=== PATIENT | male | born 1980 | race Caucasian/White ===

== ENCOUNTER 2020-10-03 10:48 | Outpatient (REF) | payer OTHER, SELFPAY ==
--- NOTE | ~2020-10-03 | US_ITS ---
EXAMINATION: US VENOUS ULTRASOUND WITH DOPPLER LOWER EXTREMITY, RIGHT CLINICAL INFORMATION: Swelling COMPARISON: Previous exam June 2019 TECHNIQUE: Ultrasound of the deep veins is performed from the hip to the calf with compression sonography and color and pulse Doppler assessment. Spectral analysis with color-flow imaging is performed. FINDINGS: There is normal venous compression and respiratory variation and augmented flow. The visualized common femoral vein, superficial femoral vein, profunda femoral vein, popliteal vein, and the trifurcation region shows no evidence of deep venous thrombosis. There is no significant popliteal fossa cyst. US/US venous duplex LE RT IMPRESSION: No DVT demonstrated in the right lower extremity.
[2020-10-03 11:43] LABS: MANUAL DIFF FLAG NO
[2020-10-03 11:47] LABS: Basophils Percent Auto 0.5 % (0-2); Eosinophils Absolute Auto 0.1 X10*3/uL (0.0-0.4); Eosinophils Percent Auto 1.1 % (0-4); Hematocrit 45.6 % (42-52); Hemoglobin 14.7 g/dl (14.0-18.0); Imm Gran Abs Auto 0.02 X10*3/uL (0.00-0.03); Imm Gran Pct Auto 0.2 % (0.0-0.4); Lymphocytes Absolute Auto 3.5 X10*3/uL (1.2-4.9); Lymphocytes Percent Auto 41.2 % (20-40); Mean Corpuscular HGB Conc 32.2 g/dl (31.0-36.0); Mean Corpuscular Hemoglobin 27.3 pg (27.0-33.0); Mean Corpuscular Volume 84.6 fL (80-98); Mean Platelet Volume 10.9 fL (9.4-12.4); Monocytes Absolute Auto 0.8 X10*3/uL (0.1-1.2); Monocytes Percent Auto 9.8 % (2-11); Neutrophils Percent Auto 47.2 % (45-73); Platelet Count 195 X10*3/uL (160-400); Red Blood Count 5.39 X10*6/uL (4.60-5.80); Red Cell Distribution Width 13.3 % (11.0-16.0); White Blood Count 8.5 X10*3/uL (4.8-10.8)
[2020-10-03 12:12] LABS: Anion Gap 11 (12-20); Blood Urea Nitrogen 14 mg/dL (9-16); Calcium 9.7 mg/dL (8.4-10.2); Carbon Dioxide 28 mmol/L (22-29); Chloride 103 mmol/L (96-108); Estimated Glomerular Filt Rate > 60; Glucose Random 83 mg/dL (60-115); Potassium 4.6 mmol/L (3.3-5.1); Sodium 137 mmol/L (135-145)
== END 2020-10-03 10:49 | disposition home or self-care (01) ==
LOC: HO.US 10:48
PROVIDERS: PCP Internal Medicine; Visit Provider Internal Medicine
DX: Z00.00 Encounter for general adult medical examination without abnormal findings (principal); R60.0 Localized edema; R51.9 Headache, unspecified
CPT/HCPCS: 36415; 80048; 85025; 93971

== ENCOUNTER 2020-11-08 11:27 | Outpatient (REF) | payer OTHER, SELFPAY ==
--- NOTE | ~2020-11-08 | XR_ITS ---
EXAMINATION: XR CHEST CLINICAL INFORMATION: Dyspnea. COMPARISON: Chest radiograph dated 11/30/2018. TECHNIQUE: 2 views of the chest were obtained. FINDINGS: The lungs are clear. The cardiomediastinal silhouette is normal in size. There is no pleural effusion or pneumothorax. No acute osseous abnormality. XR/XR chest 2V IMPRESSION: No acute cardiopulmonary findings.
--- NOTE | 2020-11-08 11:56 | ECG_ITS ---
Test Reason : Z13.9 Blood Pressure : / mmHG Vent. Rate : 082 BPM Atrial Rate : 082 BPM P-R Int : 134 ms QRS Dur : 084 ms QT Int : 354 ms P-R-T Axes : 039 -09 019 degrees QTc Int : 413 ms Normal sinus rhythm Cannot rule out Inferior infarct , age undetermined Abnormal ECG When compared with ECG of 30-NOV-2018 12:43, No significant change was found Referred By: Giuliano Kelley Electronically Signed By:PATRICK CHEN MD
[2020-11-08 12:10] LABS: MANUAL DIFF FLAG NO
[2020-11-08 12:20] LABS: Basophils Percent Auto 0.3 % (0-2); Eosinophils Absolute Auto 0.1 X10*3/uL (0.0-0.4); Eosinophils Percent Auto 0.9 % (0-4); Hematocrit 47.5 % (42-52); Hemoglobin 15.4 g/dl (14.0-18.0); Imm Gran Abs Auto 0.02 X10*3/uL (0.00-0.03); Imm Gran Pct Auto 0.3 % (0.0-0.4); Lymphocytes Absolute Auto 3.7 X10*3/uL (1.2-4.9); Lymphocytes Percent Auto 47.8 % (20-40); Mean Corpuscular HGB Conc 32.4 g/dl (31.0-36.0); Mean Corpuscular Hemoglobin 27.4 pg (27.0-33.0); Mean Corpuscular Volume 84.5 fL (80-98); Mean Platelet Volume 11.3 fL (9.4-12.4); Monocytes Absolute Auto 0.7 X10*3/uL (0.1-1.2); Monocytes Percent Auto 9.2 % (2-11); Neutrophils Absolute Auto 3.2 X10*3/uL (2.0-8.3); Neutrophils Percent Auto 41.5 % (45-73); Platelet Count 213 X10*3/uL (160-400); Red Blood Count 5.62 X10*6/uL (4.60-5.80); Red Cell Distribution Width 13.2 % (11.0-16.0); White Blood Count 7.7 X10*3/uL (4.8-10.8)
[2020-11-08 12:44] LABS: Alanine Aminotransferase 35 U/L (0-40); Albumin Level 4.3 g/dL (3.5-5.0); Alkaline Phosphatase 88 U/L (39-117); Anion Gap 15 (12-20); Aspartate Amino Transferase 24 U/L (5-37); Bilirubin Total 0.6 mg/dL (0.0-1.0); Blood Urea Nitrogen 20 mg/dL (9-16); Calcium 9.8 mg/dL (8.4-10.2); Carbon Dioxide 28 mmol/L (22-29); Chloride 104 mmol/L (96-108); Cholesterol 233 mg/dL; Estimated Glomerular Filt Rate > 60; Glucose Fasting 103 mg/dL (60-99); HDL Cholesterol 39 mg/dL; LDL Cholesterol Calculated 151 mg/dl; Potassium 4.7 mmol/L (3.3-5.1); Sodium 142 mmol/L (135-145); Total Protein 7.2 g/dL (6.5-8.0); Triglycerides 216 mg/dL
[2020-11-08 13:05] LABS: Thyroid Stimulating Hormone 1.71 uIU/mL (0.32-4.0)
== END 2020-11-08 11:28 | disposition home or self-care (01) ==
LOC: HO.XRAY 11:27
PROVIDERS: PCP Internal Medicine; Visit Provider Internal Medicine
DX: Z01.818 Encounter for other preprocedural examination (principal); R06.00 Dyspnea, unspecified; E03.9 Hypothyroidism, unspecified; E11.9 Type 2 diabetes mellitus without complications
CPT/HCPCS: 36415; 71046; 80053; 80061; 84443; 85025; 93005

== ENCOUNTER 2023-06-15 16:53 | Emergency (ER) | payer OTHER, SELFPAY ==
--- NOTE | ~2023-06-15 | XR_ITS ---
EXAMINATION: XR CHEST CLINICAL INFORMATION: Shortness of breath. Cough. COMPARISON: 11/08/2020. TECHNIQUE: Frontal view of the chest was obtained. FINDINGS: No significant abnormality is noted involving the heart, lungs, mediastinum, bony thorax or soft tissues. XR/XR chest 1V IMPRESSION: Unremarkable examination.
[2023-06-15 16:57] VITALS: BP 147/91; PULSE 98; RESP 18; TEMP 36.7; O2SAT 98; BMI 36.0
--- NOTE | 2023-06-15 16:57 | ECG_ITS ---
Test Reason : CHEST PAIN Blood Pressure : / mmHG Vent. Rate : 104 BPM Atrial Rate : 104 BPM P-R Int : 142 ms QRS Dur : 080 ms QT Int : 350 ms P-R-T Axes : 021 -24 007 degrees QTc Int : 460 ms Sinus tachycardia Nonspecific T wave abnormality Abnormal ECG When compared with ECG of 08-NOV-2020 12:06, Minimal criteria for Inferior infarct are no longer Present Nonspecific ST and T wave abnormality more prominent Referred By: Meseret Sommers Electronically Signed By:KENIA PIZARRO
--- NOTE | 2023-06-15 16:58 | ED.GENADULT ---
HPI - General Adult General Chief complaint: General Medical Stated complaint: pain in the chest/back worse when breathing in Time Seen by Provider: 06/15/23 18:34 Source: patient, RN notes reviewed and old records reviewed Mode of arrival: ambulatory Limitations: no limitations History of Present Illness HPI narrative: 42-year-old male presents for evaluation of ?feeling sick. ? Patient states that he has had congestion, headache and body aches for the last 3 days This morning he woke up with left mid back pain His pain is worse with taking a deep breath He has minimal coughing Denies any sore throat He has no other complaints or concerns at this time He denies any sick contacts or recent travel Related Data Previous Rx's Medication Instructions Recorded naproxen 500 mg tablet (Naprosyn) 500 mg PO BID PRN pain #60 tabs 10/03/20 azithromycin 250 mg tablet See Rx Instructions PO .COMPLEX #6 07/11/22 tabs furosemide 20 mg tablet 20 mg PO DAILY #30 tabs 07/11/22 azithromycin 250 mg tablet 250 mg PO DAILY 4 days #4 tabs 06/15/23 prednisone 20 mg tablet 40 mg (2 x 20 mg) PO DAILY #8 tabs 06/15/23 Allergies Allergy/AdvReac Type Severity Reaction Status Date / Time No Known Allergies Allergy Verified 07/11/22 11:44 Review of Systems Constitutional: Constitutional: Reports body ache(s), Denies chills, Denies fever(s) and Reports headache(s) Eyes: Eyes: Denies blurry vision ENT: Reports headache(s) and Denies sore throat Cardiovascular: Cardiovascular: Denies chest pain Respiratory: Respiratory: Reports chest congestion, Reports cough and Reports pain on inspiration Gastrointestinal: Gastrointestinal: Denies abdominal pain, Denies nausea and Denies vomiting Musculoskeletal: Musculoskeletal: Reports back pain and Denies tingling Integumentary/Breasts: Skin/Breast: Denies rash Neurologic: Reports headache(s), Denies tingling and Denies paresthesias [facility] Family History Family History Mother High blood pressure Arthritis Father Asthma Lung cancer High blood pressure Social History Social History Housing: Apartment Alcohol intake: never Patient Tobacco Use Status: Current everyday Tobacco user Cigarettes Per Day: 10 e-Cigarette/Vaping Use: Never Used Second Hand Smoke Exposure: No Advance Directives: No Advance Directives Information Provided: No service: No Current occupational status: unemployed Cognitive needs: No Hearing needs: No Vision needs: No Physical Exam ED Vital Signs: Vital Signs - 24 hr 06/15/23 16:57 Temperature 98.0 F Pulse Rate 98 Respiratory Rate 18 Blood Pressure 147/91 H Pulse Oximetry 98 Oxygen Delivery Method Room Air BMI result Body Mass Index 36.0 Const General: healthy appearing, comfortable, no acute distress, alert and awake Nutritional Appearance: well nourished Orientation/consciousness: patient oriented x3 HENMT Head: Yes normocephalic and Yes atraumatic Ears: TM's normal bilaterally General nose exam: Normal nasal mucous membranes and turbinates present Face and sinus: Yes face symmetric and Yes sinus tenderness Throat: Yes posterior oropharynx normal Eyes Eyelids: Yes eyelids normal Conjunctivae: conjunctivae normal Sclerae: sclerae normal Corneas: corneas normal Pupils: Equal, round and reactive pupils present EOM: EOMs intact bilaterally Neck Neck: Yes full ROM Resp Effort & Inspection: normal respiratory effort, able to speak in complete sentences, no audible wheezes and not labored Auscultation: clear to auscultation bilaterally Cardio Rate: regular rate Rhythm: regular rhythm GI Inspection: No distended Palpation (GI): Soft to palpation, not firm, nontender, no guarding and not rigid Back/Spine/Pelvis Other: Patient is tender to palpation of the left mid back/thoracic paraspinous region. No palpable deformities, no vertebral tenderness. Skin General skin exam: elasticity normal Neuro General: patient oriented x3 Cranial nerves: Yes Equal, round and reactive pupils present and Yes Bilaterally intact EOM present Cognition (Neuro): normal cognition Extrem Other: Moving all extremities well without any obvious deformities Course Course Course Narrative: This is an RME: Additional HPI, ROS, PE not included below will be deferred to primary provider. 42 year old male presents w/ congestion, cp, sob X2 days. Reports chest pain is worse deep breathing and with exertion. No history of PE or DVT. Daily smoker. No sick contacts Perc negative. Likely viral. No need for D-dimer at this time low suspicion for PE DVT. No signs of acute respiratory distress. Plans viral test, labs, imaging Medical Decision Making Medical Decision Making MDM Narrative: 42-year-old male who is otherwise healthy presents for evaluation of upper respiratory infections and left back pain. His lungs are clear to auscultation, vital signs are stable. He has no risk factors for PE, EKG is nonischemic. His shortness of breath is likely related to nasal congestion upper respiratory/viral syndrome. His back pain appears musculoskeletal in origin as it is reproducible on exam, chest x-ray is clear. Plan for treatment of upper respiratory infection Differential Diagnosis Differential Diagnoses: The differential diagnosis associated with the presentation includes Upper respiratory infection Muscle strain Pneumonia Bronchitis Pneumothorax PE less likely Lab Data [facility] Lab Attestation statement: I reviewed the patient's lab results. No leukocytosis or anemia. No significant electrolyte abnormalities. Patient's BUN is just above normal at 19. Normal creatinine. Troponin undetectable. BNP also undetectable. ALT is slightly elevated to 72, unclear origin. No other LFT abnormalities 06/15/23 17:30 06/15/23 17:30 Labs: Lab Results 06/15/23 Range/Units 17:30 WBC 7.9 (4.8-10.8) X10*3/uL RBC 5.53 (4.60-5.80) X10*6/uL Hgb 14.9 (14.0-18.0) g/dl Hct 45.2 (42.0-52.0) % MCV 81.7 (80.0-98.0) fL MCH 26.9 L (27.0-33.0) pg MCHC 33.0 (31.0-36.0) g/dl RDW 13.1 (11.0-16.0) % Plt Count 190 (160-400) X10*3/uL MPV 10.4 (9.4-12.4) fL Immature Gran % (Auto) 0.3 (0.0-0.4) % Neut % (Auto) 38.0 L (45-73) % Lymph % (Auto) 54.0 H (20-40) % Cecil % (Auto) 7.6 (2-11) % Eos % (Auto) 0.0 (0-4) % Baso % (Auto) 0.1 (0-2) % Lymph # (Auto) 4.2 (1.2-4.9) X10*3/uL Cecil # (Auto) 0.6 (0.1-1.2) X10*3/uL Eos # (Auto) 0.0 (0.0-0.4) X10*3/uL Baso # (Auto) 0.0 (0.0-0.2) X10*3/uL Abs Immat Gran (auto) 0.02 (0.00-0.03) X10*3/uL Absolute Neuts (auto) 3.0 (2.0-8.3) x10*3/uL Absolute Nucleated RBC 0.000 (0.0-0.012) X10*3/uL Nucleated RBC % (auto) 0.0 (0.0-0.2) /100WBC PT 11.3 (11.1-13.3) SEC INR 0.9 (0.9-1.1) Sodium 139 (135-145) mmol/L Potassium 4.0 (3.3-5.1) mmol/L Chloride 107 (96-108) mmol/L Carbon Dioxide 21 L (22-29) mmol/L Anion Gap 15 (12-20) BUN 19 H (9-16) mg/dL Creatinine 0.80 (0.5-1.4) mg/dL Estim Creat Clear Calc 138.4 Estimated GFR > 60 Random Glucose 101 (60-115) mg/dL Calcium 9.5 (8.4-10.2) mg/dL Magnesium 2.3 (1.6-2.6) mg/dL Total Bilirubin 0.3 (0.0-1.0) mg/dL AST 36 (5-37) U/L ALT 72 H (0-40) U/L Alkaline Phosphatase 93 (39-117) U/L Troponin I High Sens < 2.7 (<3.5-35.0) ng/L B-Natriuretic Peptide < 10 (<100) pg/mL Total Protein 7.3 (6.5-8.0) g/dL Albumin 4.0 (3.5-5.0) g/dL Influenza Type A (PCR) NEGATIVE (Negative) Influenza Type B (PCR) NEGATIVE (Negative) RSV RNA Qual (PCR) NEGATIVE (Negative) SARS-CoV-2 RNA (RT-PCR) NEGATIVE (Negative) Independent Interpretation I performed an independent interpretation of an: EKG (Sinus tachycardia rate of 104 beats per minute. No ST segment elevations or depressions.) and Plain X-Ray (No infiltrate) Radiology Impression Discussion of test interpretation with radiology: I have reviewed the radiologist's reading. (Unremarkable examination) Discharge Plan Discharge Clinical Impression: Acute upper respiratory infection Patient Disposition: Home, Self-Care Instructions: Upper Respiratory Infection (ED) Additional Instructions: Take azithromycin daily starting tomorrow as your 1st dose was given in the emergency department Take prednisone 40 mg daily Use ibuprofen/Tylenol for body aches Follow-up with your primary doctor Return to the ER sooner if her symptoms do not improve treatment Prescriptions: New azithromycin 250 mg tablet 250 mg PO DAILY 4 Days Qty: 4 0RF Rx Instructions: start on day 2 of therapy prednisone 20 mg tablet 40 mg PO DAILY Qty: 8 0RF No Action naproxen [Naprosyn] 500 mg tablet 500 mg PO BID PRN (Reason: pain) Qty: 60 8RF azithromycin 250 mg tablet See Rx Instructions PO .COMPLEX Qty: 6 0RF Rx Instructions: take 500 mg today (day 1), then 250 mg for 4 days (days 2-5) PO furosemide 20 mg tablet 20 mg PO DAILY Qty: 30 6RF
[2023-06-15 17:35] LABS: MANUAL DIFF FLAG NO
[2023-06-15 17:38] LABS: Basophils Percent Auto 0.1 % (0-2); Hematocrit 45.2 % (42.0-52.0); Hemoglobin 14.9 g/dl (14.0-18.0); Imm Gran Abs Auto 0.02 X10*3/uL (0.00-0.03); Imm Gran Pct Auto 0.3 % (0.0-0.4); Lymphocytes Absolute Auto 4.2 X10*3/uL (1.2-4.9); Mean Corpuscular Hemoglobin 26.9 pg (27.0-33.0); Mean Corpuscular Volume 81.7 fL (80.0-98.0); Mean Platelet Volume 10.4 fL (9.4-12.4); Monocytes Absolute Auto 0.6 X10*3/uL (0.1-1.2); Monocytes Percent Auto 7.6 % (2-11); Platelet Count 190 X10*3/uL (160-400); Red Blood Count 5.53 X10*6/uL (4.60-5.80); Red Cell Distribution Width 13.1 % (11.0-16.0); White Blood Count 7.9 X10*3/uL (4.8-10.8)
[2023-06-15 17:45] LABS: INTERNATIONAL NORM RATIO 0.9 (0.9-1.1); Prothrombin Time 11.3 SEC (11.1-13.3)
[2023-06-15 17:53] LABS: Alanine Aminotransferase 72 U/L (0-40); Alkaline Phosphatase 93 U/L (39-117); Anion Gap 15 (12-20); Aspartate Amino Transferase 36 U/L (5-37); Bilirubin Total 0.3 mg/dL (0.0-1.0); Blood Urea Nitrogen 19 mg/dL (9-16); Calcium 9.5 mg/dL (8.4-10.2); Carbon Dioxide 21 mmol/L (22-29); Chloride 107 mmol/L (96-108); Creatinine Clr Calc Pharmacy 138.4; Estimated Glomerular Filt Rate > 60; Glucose Random 101 mg/dL (60-115); Magnesium 2.3 mg/dL (1.6-2.6); Sodium 139 mmol/L (135-145); Total Protein 7.3 g/dL (6.5-8.0)
[2023-06-15 18:01] LABS: Troponin-I High Sensitivity < 2.7 ng/L (<3.5-35.0)
[2023-06-15 18:03] LABS: B Type Natriuretic Peptide < 10 pg/mL (<100)
[2023-06-15 18:13] LABS: Influenza A PCR NEGATIVE (Negative); Influenza B PCR NEGATIVE (Negative); Resp Syncy Virus RNA Qual PCR NEGATIVE (Negative); SARS COV2 PCR INHOUSE NEGATIVE (Negative)
[2023-06-15] MEDS: predniSONE 20 MG TABLET 40 MG PO (18:57)
[2023-06-15] MEDS: Azithromycin 500 MG TABLET PO (18:57)
== END 2023-06-15 19:00 | disposition home or self-care (01) ==
PROVIDERS: Physician Assistant; Emergency Provider Emergency Medicine; PCP Internal Medicine
DX: J06.9 Acute upper respiratory infection, unspecified (principal); Z20.822 Contact with and (suspected) exposure to COVID-19; Z20.828 Contact with and (suspected) exposure to other viral communicable diseases
CPT/HCPCS: 0241U; 71045; 80053; 83735; 83880; 84484; 85025; 85610; 93005; 99283

== ENCOUNTER → 2023-06-15 16:57 | Outpatient (BNV) | payer OTHER, SELFPAY | PROVIDERS: Emergency Provider Emergency Medicine; PCP Internal Medicine; Visit Provider Internal Medicine | DX: R07.9 Chest pain, unspecified (principal) | CPT/HCPCS: 93010 ==

== ENCOUNTER 2023-09-28 20:14 | Emergency (ER) | payer OTHER, SELFPAY ==
--- NOTE | ~2023-09-28 | XR_ITS ---
EXAMINATION: XR HAND/WRIST, LEFT CLINICAL INFORMATION: Puncture wound to hand COMPARISON: None TECHNIQUE: PA, lateral, and oblique views of the left hand and wrist. FINDINGS: The bones and soft tissues are normal. No fracture. Alignment is anatomic. Joint spaces are maintained. No erosions or soft tissue calcifications. No radiopaque foreign body is seen. XR/XR hand wrist LT IMPRESSION: Normal radiographs of the hand and wrist.
[2023-09-28 20:37] VITALS: BP 131/72; PULSE 88; RESP 16; TEMP 37.3; O2SAT 96; BMI 34.7
--- NOTE | 2023-09-28 20:42 | ED.EXTPRO ---
HPI - Extremity Problem General Chief complaint: Extremity Injury, Upper Stated complaint: left hand ?piece of rust in the skin Time Seen by Provider: 09/28/23 23:59 Source: patient, RN notes reviewed and old records reviewed Mode of arrival: ambulatory Limitations: no limitations History of Present Illness HPI Narrative: 43-year-old presents for evaluation of left hand pain Patient reports that he was wearing cotton gloves. He was cleaning up a yard He reports that he picked up a piece of barbed wire He reports that a piece of the sharp wire punctured his left hand through the glove This happened yesterday afternoon, about 8 hours ago He reports 7/10 stabbing pain to the base of the left hand Denies any other injuries. The patient does not know when his last tetanus shot was Related Data Previous Rx's ?Medication ?Instructions ?Recorded naproxen 500 mg tablet (Naprosyn) 500 mg PO BID PRN pain #60 tabs 10/03/20 azithromycin 250 mg tablet See Rx Instructions PO .COMPLEX #6 07/11/22 tabs furosemide 20 mg tablet 20 mg PO DAILY #30 tabs 07/11/22 azithromycin 250 mg tablet 250 mg PO DAILY 4 days #4 tabs 06/15/23 prednisone 20 mg tablet 40 mg (2 x 20 mg) PO DAILY #8 tabs 06/15/23 cephalexin 500 mg capsule 500 mg PO QID #28 caps 09/29/23 oxycodone 5 mg tablet 5 mg PO Q6H PRN severe pain (scale 09/29/23 score 7-10) #12 tabs Allergies Allergy/AdvReac Type Severity Reaction Status Date / Time No Known Allergies Allergy Verified 09/28/23 20:40 Review of Systems Constitutional: Constitutional: Denies body ache(s), Denies chills and Denies fever(s) ENT: Denies sore throat Cardiovascular: Cardiovascular: Denies chest pain and Denies dyspnea Respiratory: Respiratory: Denies cough and Denies dyspnea Gastrointestinal: Gastrointestinal: Denies abdominal pain, Denies nausea and Denies vomiting Integumentary/Breasts: Skin/Breast: Reports erythema and Reports wounds PMFSH Family History Family History Mother High blood pressure Arthritis Father Asthma Lung cancer High blood pressure Social History Social History (Reviewed 10/09/21 @ 13:14 by JALYN Baron Housing: Apartment Alcohol intake: never Patient Tobacco Use Status: Current everyday Tobacco user Cigarettes Per Day: 10 e-Cigarette/Vaping Use: Never Used Second Hand Smoke Exposure: No Advance Directives: No Advance Directives Information Provided: No service: No Current occupational status: unemployed Cognitive needs: No Hearing needs: No Vision needs: No Physical Exam Vital Signs: Vital Signs: Last Vital Signs Temp 97.6 F 09/29/23 01:31 Pulse 79 09/29/23 01:31 Resp 14 09/29/23 01:31 BP 152/89 H 09/29/23 01:31 Pulse Ox 100 09/29/23 01:31 O2 Del Method Room Air 09/29/23 01:31 BMI result Body Mass Index 34.7 Const: General: healthy appearing, comfortable, no acute distress, alert and awake Nutritional Appearance: well nourished Orientation/consciousness: patient oriented x3 HEENT: Head: Yes normocephalic and Yes atraumatic Eyes: Eyelids: Yes eyelids normal Conjunctivae: conjunctivae normal Sclerae: sclerae normal Corneas: corneas normal Pupils: Equal, round and reactive pupils present EOM: EOMs intact bilaterally Neck: Neck: Yes full ROM Resp: Effort & Inspection: normal respiratory effort, able to speak in complete sentences and not labored GI: Inspection: No distended Palpation (GI): Soft to palpation, not firm, nontender, no guarding and not rigid Skin: Other: Patient has a pinpoint puncture wound on the palmar surface of the hand just to the ulnar side of the thenar eminence. There is minimal edema, no significant erythema or purulence. This area is tender to palpation. There is no bleeding. I can not palpate any obvious foreign body General skin exam: elasticity normal Neuro: General: patient oriented x3 Cranial nerves: Yes Equal, round and reactive pupils present and Yes Bilaterally intact EOM present Cognition (Neuro): normal cognition Course Course Course Narrative: RME: 40-year-old male presents to the ED for meghann piece of barbed wire pacing left hand. Patient has complete range of motion of left hand. No active bleeding. Patient concern for tetanus. Patient will be sent for x-ray and Tdap ordered. Medications Administered Discontinued Medications Generic Name Dose Route Start Last Admin Trade Name Freq PRN Reason Stop Dose Admin Cephalexin HCl 500 mg 04/09/24 01:09 09/29/23 01:21 Cephalexin 500 Mg Capsule PO 09/29/23 01:10 500 mg ONCE ONE Administration Diphtheria/Tetanus/Acell Pertussis 0.5 ml 09/28/23 20:41 09/29/23 01:17 Diphth,Pertus(Acell),Tet Adult 0.5 Ml Syringe IM 09/28/23 20:42 Not Given .ONCE ONE Diphtheria/Tetanus/Acell Pertussis 0.5 ml 09/29/23 01:09 09/29/23 01:22 Diphth,Pertus(Acell),Tet Adult 0.5 Ml Syringe IM 09/29/23 01:10 0.5 ml .ONCE ONE Administration Oxycodone HCl 5 mg 09/29/23 01:09 09/29/23 01:21 Oxycodone Hcl Immed Release 5 Mg Tablet PO 09/29/23 01:10 5 mg ONCE ONE Administration Medical Decision Making Medical Decision Making MDM Narrative: 43-year-old male presents for evaluation of puncture wound to the left hand. He has full range of motion flexion-extension of all fingers of the left hand, including opposition of the thumb. He has full range of motion of the left wrist. There is no obvious foreign body on exam or through x-ray. No evident fracture. Plan to treat with analgesia, antibiotics and tetanus booster. Differential Diagnosis Differential Diagnoses: The differential diagnosis associated with the presentation includes Puncture wound Cellulitis Foreign body Tenosynovitis Independent Interpretation I performed an independent interpretation of an: Plain X-Ray (No obvious foreign body) Radiology Impression Discussion of test interpretation with radiology: I have reviewed the radiologist's reading. Radiologist Impression: Normal radiographs of the left hand Discharge Plan Discharge Clinical Impression: Puncture wound of left hand Patient Disposition: Home, Self-Care Instructions: Puncture Wound (ED) Additional Instructions: Use ibuprofen/Tylenol as needed for pain. Your x-ray did not show any retained foreign body Your tetanus was updated today Use oxycodone for more severe, breakthrough pain This may make you sleepy, did not drink alcohol or drive after taking it Use cephalexin 4 times daily for the next 7 days Return to the ER for any new or worsening symptoms, especially redness, increased swelling, decreased motion of the hand or fevers Prescriptions: New cephalexin 500 mg capsule 500 mg PO QID Qty: 28 0RF oxycodone 5 mg tablet 5 mg PO Q6H PRN (Reason: severe pain (scale score 7-10)) Qty: 12 0RF Rx Instructions: Partial Fill upon patient request. No Action azithromycin 250 mg tablet 250 mg PO DAILY 4 Days Qty: 4 0RF Rx Instructions: start on day 2 of therapy prednisone 20 mg tablet 40 mg PO DAILY Qty: 8 0RF naproxen [Naprosyn] 500 mg tablet 500 mg PO BID PRN (Reason: pain) Qty: 60 8RF azithromycin 250 mg tablet See Rx Instructions PO .COMPLEX Qty: 6 0RF Rx Instructions: take 500 mg today (day 1), then 250 mg for 4 days (days 2-5) PO furosemide 20 mg tablet 20 mg PO DAILY Qty: 30 6RF Interventions: ED Discharge Assessment Last Done: 09/29/23 01:31 Discharge Date/Time: 09/29/23 01:33 Print Language: Telugu
[2023-09-29] MEDS: oxyCODONE HCl Immed Release 5 MG TABLET PO (01:21)
[2023-09-29] MEDS: cephALEXin 500 MG CAPSULE PO (01:21)
[2023-09-29] MEDS: Diphth,Pertus(ACell),Tet Adult 0.5 ML SYRINGE IM (01:22)
[2023-09-29 01:31] VITALS: BP 152/89; PULSE 79; RESP 14; TEMP 36.4; O2SAT 100
== END 2023-09-29 01:33 | disposition home or self-care (01) ==
PROVIDERS: Emergency Provider Emergency Medicine
DX: S61.432A Puncture wound without foreign body of left hand, initial encounter (principal); W26.8XXA Contact with other sharp object(s), not elsewhere classified, initial encounter; Y93.H9 Activity, other involving exterior property and land maintenance, building and construction; Y92.9 Unspecified place or not applicable; Y99.9 Unspecified external cause status
CPT/HCPCS: 73110; 73130; 90471; 90715; 99283; 99284

== ENCOUNTER 2023-11-25 22:04 | Emergency (ER) | payer OTHER, SELFPAY ==
--- NOTE | ~2023-11-25 | XR_ITS ---
EXAMINATION: XR HAND/WRIST, RIGHT CLINICAL INFORMATION: Pain, possible work injury COMPARISON: None TECHNIQUE: PA, lateral, and oblique views of the right hand and wrist. FINDINGS: Osseous alignment is anatomic. No acute fracture is seen. Mild degenerative change at the basal joint of the thumb. No significant focal soft tissue abnormality identified. XR/XR hand wrist RT IMPRESSION: No acute findings identified.
[2023-11-25 22:14] VITALS: BP 118/73; PULSE 72; RESP 20; TEMP 36.2; O2SAT 98; BMI 33.0
[2023-11-26 03:47] VITALS: BP 120/66; PULSE 68; RESP 16; TEMP 36.6; O2SAT 98
[2023-11-26] MEDS: Acetaminophen 325 MG TABLET 975 MG PO (04:04)
--- NOTE | 2023-11-26 06:02 | PC.NURSE ---
After screaming at staff and t/w over the lengthy wait to see a provider, this patient requested to leave, banging on the doors by [facility], screaming to be let out. MD aware but remained unable to see pt.
--- NOTE | 2023-11-26 06:14 | PC.NURSE ---
Pt extremely upset at the lengthy wait to see provider. T/w and multiple other staff members explaining that the one provider on at night is extremely behind. notified that pt and visitor upset, yelling at staff. remained unable to see pt.
== END 2023-11-26 06:45 | disposition left against medical advice (07) ==
PROVIDERS: Emergency Provider Emergency Medicine
DX: M79.641 Pain in right hand (principal); M79.601 Pain in right arm; M25.531 Pain in right wrist
CPT/HCPCS: 73110; 73130; 99283

== ENCOUNTER 2023-11-27 13:42 | Outpatient (AMB) | payer OTHER, SELFPAY ==
[2023-11-27 13:50] VITALS: BP 130/70; PULSE 73; TEMP 36.7; O2SAT 98; BMI 32.4
--- NOTE | 2023-11-27 13:50 | MHC.OFFWIV ---
Intake Vital Signs 11/27/23 13:50 Height 5 ft 7 in Intake Visit Reasons: EP RT Forearm/hand concerns Intake Note: pt is here today for rt forearm and hand concerns started Patient Tobacco Use Status: Current everyday Tobacco user Allergies No Known Allergies Allergy (Verified 11/25/23 22:14) PFSH Family History Mother High blood pressure Arthritis Father Asthma Lung cancer High blood pressure Social History (Reviewed 10/09/21 @ 13:14 by Chris Mercado [facility]) Housing: Apartment Alcohol intake: never Patient Tobacco Use Status: Current everyday Tobacco user Cigarettes Per Day: 10 e-Cigarette/Vaping Use: Never Used Second Hand Smoke Exposure: No service: No Current occupational status: unemployed Cognitive needs: No Hearing needs: No Vision needs: No Coding
--- NOTE | 2023-11-27 13:59 | AM.OFFWIN_ITS ---
Intake Vital Signs 11/27/23 13:50 Height 5 ft 7 in Weight 207 lb BMI 32.4 BP 130/70 Blood Pressure Location Lt brachial Position Sitting Pulse 73 Pulse Source Pulse Oximeter Temp 98.0 F Temp Source Temporal Artery Scan Pulse Oximetry (%) 98 Oxygen Delivery Method Room Air Intake Visit Reasons: EP RT Forearm/hand concerns Intake Note: pt is here today for rt forearm and hand concerns started wed Patient Tobacco Use Status: Current everyday Tobacco user Allergies No Known Allergies Allergy (Verified 11/27/23 14:01) Do you need a note to return to daycare/school/sports/work: No HPI HPI Comments History of Present Illness Details Patient is a 43-year-old male complaining of right forearm and hand pain x2 days. He states he was using a sledgehammer at work then came home and fell asleep on his hand when when he woke up, his hand and wrist were swollen, every time he tried to open his fist, it would curl forward as well as generalized weakness in his hand, he also noted that he had some numbness in his thumb area. [facility] Family History Mother High blood pressure Arthritis Father Asthma Lung cancer High blood pressure Social History Housing: Apartment Alcohol intake: never Patient Tobacco Use Status: Current everyday Tobacco user Cigarettes Per Day: 10 e-Cigarette/Vaping Use: Never Used Second Hand Smoke Exposure: No service: No Current occupational status: unemployed Cognitive needs: No Hearing needs: No Vision needs: No Review of Systems Const All systems reviewed & are unremarkable except as noted in HPI and below Physical Exam Vital Signs: Last Vital Signs Temp 98.0 F 11/27/23 13:50 Pulse 73 11/27/23 13:50 BP 130/70 11/27/23 13:50 Pulse Ox 98 11/27/23 13:50 Oxygen Delivery Method Room Air 11/27/23 13:50 BMI result Body Mass Index 32.4 Const General: cooperative, healthy appearing, comfortable, no acute distress and well developed Orientation/consciousness: patient oriented x3 Limitations: no limitations HEENT Head: Yes normal to inspection Eyes General: appearance normal, both eyes and all related structures Neck Neck: Yes normal visual inspection and Yes full ROM GI Inspection: Yes normal to inspection Palpation (GI): Soft to palpation and nontender Skin General skin exam: no rashes or lesions noted Neuro General: patient oriented x3 Extrem Right upper extremity: wrist Details: abnormal to inspection Details: joint swelling; no erythema, tenderness Location: of the dorsal wrist and of the volar wrist; not of the anatomic snuffbox, swelling Location: of the dorsal wrist and of the volar wrist and normal vascular exam; no unusual warmth, no abrasions, no lacerations and no foreign body and Extremity exam: right hand Details: abnormal to inspection (generalized slight edema), tendon exam normal and abnormal ROM of finger (unable to extend all 5 digits completely R side, 5/5 distribution a class lineman strength b/l); no tenderness, no unusual warmth, no abrasions, no lacerations, no ecchymosis, no crepitus, no foreign bodies and no puncture wound Assessment & Plan Assessment & Plan (1) Wrist pain, right: Code(s): M25.531 - Pain in right wrist Plan: Applied Terrance bandage, advised her I CE. Will get x-ray to ensure no trauma from using the sledgehammer. Advised if no improvement, follow-up with primary care doctor or orthopedics. Orders: Orders XR hand wrist RT Today M25.531 - Pain in right wrist Coding Level of Care Code Est Pt Level 3 (08964) Diagnoses Wrist pain, right M25.531
== END 2023-11-27 14:52 | disposition home or self-care (01) ==
PROVIDERS: Visit Provider Physician Assistant
DX: M25.531 Pain in right wrist (principal); Z04.2 Encounter for examination and observation following work accident
CPT/HCPCS: 99213

== ENCOUNTER 2023-11-27 14:27 | Outpatient (REF) | payer OTHER, SELFPAY ==
--- NOTE | ~2023-11-27 | XR_ITS ---
EXAMINATION: XR HAND/WRIST, RIGHT CLINICAL INFORMATION: Pain COMPARISON: Previous x-ray most recent from yesterday TECHNIQUE: PA, lateral, and oblique views of the right hand and wrist. FINDINGS: No acute fracture or dislocation. There may be an old healed fracture of the fifth metacarpal bone. Mild degenerative changes at the first CORRECTION joint with joint space narrowing and osteophyte formation. Soft tissues are normal. XR/XR hand wrist RT IMPRESSION: No acute findings. Question old healed fifth metacarpal fracture. 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
== END 2023-11-27 14:28 | disposition home or self-care (01) ==
LOC: HO.HMGCX 14:27
PROVIDERS: Visit Provider Physician Assistant
DX: M25.531 Pain in right wrist (principal)
CPT/HCPCS: 73110; 73130

== ENCOUNTER 2024-05-06 14:15 | Outpatient (REF) | payer OTHER, SELFPAY | END 2024-05-06 14:16 | disposition home or self-care (01) | LOC: HO.LAB 14:15 | PROVIDERS: Visit Provider Physician Assistant | DX: J06.9 Acute upper respiratory infection, unspecified (principal) | CPT/HCPCS: 99202 ==

== ENCOUNTER 2024-05-06 14:15 | Outpatient (AMB) | payer OTHER, SELFPAY ==
[2024-05-06 14:19] VITALS: BP 122/76; PULSE 73; TEMP 36.8; O2SAT 96; BMI 32.2
--- NOTE | 2024-05-06 14:19 | MHC.OFFWIV ---
Intake Vital Signs 05/06/24 14:19 Height 5 ft 7 in Weight 205 lb 6 oz BMI 32.2 BP 122/76 Blood Pressure Location Rt brachial Position Sitting Pulse 73 Pulse Source Pulse Oximeter Temp 98.2 F Temp Source Oral Pulse Oximetry (%) 96 Oxygen Delivery Method Room Air Intake Visit Reasons: EP cold, RT rib in pain Intake Note: pt is here for cold, right rib pain Patient Tobacco Use Status: Current everyday Tobacco user Allergies No Known Allergies Allergy (Verified 05/06/24 14:19) Do you need a note to return to daycare/school/sports/work: No HPI HPI Comments History of Present Illness Details Patient is a 43-year-old male here with 2 complaints. First he says 10 days ago, he was jumping over a fence and he got caught on it and landed on his right rib. He states it was immediately painful. It is worse when he coughs. He tells me he has been coughing for the last 2 weeks. He also has nasal congestion, head congestion and sinus pain and feels short of breath because of it. He denies any ear pain, fevers, chest pain or wheezing. He has tried taking NyQuil and DayQuil without much relief. He has not tested for COVID. He denies a history of asthma or COPD. He tells me his girlfriend is also sick at home with similar symptoms. COUNTS INCLUDE 234 BEDS AT THE [facility] Family History Mother High blood pressure Arthritis Father Asthma Lung cancer High blood pressure Social History Housing: Apartment Alcohol intake: never Patient Tobacco Use Status: Current everyday Tobacco user Cigarettes Per Day: 10 e-Cigarette/Vaping Use: Never Used Second Hand Smoke Exposure: No service: No Current occupational status: unemployed Cognitive needs: No Hearing needs: No Vision needs: No Review of Systems Const All systems reviewed & are unremarkable except as noted in HPI and below Physical Exam Const General: cooperative, healthy appearing, comfortable and no acute distress Orientation/consciousness: patient oriented x3 Limitations: no limitations HEENT Head: Yes normal to inspection Ears: hearing grossly normal bilaterally, external ears normal and TM's normal bilaterally General nose exam: Normal external nose present, Normal nares present and No nasal discharge present Face and sinus: Yes normal facial exam and Yes sinuses nontender Mouth: Normal oral and palatal mucosa present and moist mucous membranes Throat: Yes tonsils normal, Yes uvula midline and Yes posterior oropharynx abnormal (Erythema) Eyes General: appearance normal, both eyes and all related structures Neck Neck: Yes normal visual inspection Resp Effort & Inspection: normal respiratory effort, able to speak in complete sentences, Actively coughing, no respiratory distress, not tachypneic, no tripod positioning and no use of accessory muscles Auscultation: clear to auscultation bilaterally Cardio Rate: regular rate Rhythm: regular rhythm Heart sounds: normal S1 and S2 Skin General skin exam: no rashes or lesions noted Neuro General: patient oriented x3 Extrem General: Yes normal to inspection and Yes no clubbing, cyanosis or edema Assessment & Plan Assessment & Plan (1) URI (upper respiratory infection): Code(s): J06.9 - Acute upper respiratory infection, unspecified Qualifiers: URI type: unspecified URI Qualified Code(s): J06.9 - Acute upper respiratory infection, unspecified Plan: Vital signs are stable and patient is well-appearing, I will get a chest x-ray because he is coughing he also could have fractured a rib with his fence incident. I have sent prednisone and codeine cough syrup to help him with his symptoms and as it has been over 2 weeks of a cough, likely could be an atypical pneumonias so I sent a Z-Quique to his pharmacy. We also tested for flu COVID and RSV. Plan See above Orders: Orders XR chest 2V Today R05.9 - Cough, unspecified SARS-CoV2/FLU/RSV Today J06.9 - Acute upper respiratory infection, unspecified Medications: New prednisone 20 mg PO QAM 5 tabs 0RF azithromycin For 250 mg dose pack: take 500 mg today (day 1), then 250 mg for 4 days (days 2-5) PO 6 tabs 0RF codeine-guaifenesin 10-100 mg/5 mL 10 mL PO Q4-6H PRN 120 mL 0RF cold symptoms Coding Level of Care Code New Pt Level 4 (83720) Diagnoses Upper respiratory tract infection, unspecified type J06.9 URI type: unspecified URI
== END 2024-05-06 14:43 | disposition home or self-care (01) ==
PROVIDERS: Visit Provider Physician Assistant
DX: J06.9 Acute upper respiratory infection, unspecified (principal)

== ENCOUNTER 2024-05-06 14:35 | Outpatient (REF) | payer OTHER, SELFPAY ==
--- NOTE | ~2024-05-06 | XR_ITS ---
EXAMINATION: XR CHEST CLINICAL INFORMATION: Cough. COMPARISON: Most recent chest radiograph dated 06/15/2023. TECHNIQUE: 2 views of the chest were obtained. FINDINGS: The lungs are clear. The cardiomediastinal silhouette is normal in size. There is no pleural effusion or pneumothorax. No acute osseous abnormality. XR/XR chest 2V IMPRESSION: No acute cardiopulmonary findings. Electronically signed by: Job Regan MD 05/06/2024 03:49 PM [facility]
[2024-05-06 16:51] LABS: Influenza A PCR NEGATIVE (Negative); Influenza B PCR NEGATIVE (Negative); Resp Syncy Virus RNA Qual PCR NEGATIVE (Negative); SARS COV2 PCR INHOUSE NEGATIVE (Negative)
== END 2024-05-06 14:36 | disposition home or self-care (01) ==
LOC: HO.HMGCX 14:35
PROVIDERS: Visit Provider Physician Assistant
DX: J06.9 Acute upper respiratory infection, unspecified (principal); R05.9 Cough, unspecified
CPT/HCPCS: 0241U; 71046

== ENCOUNTER 2025-03-31 18:54 | Emergency (ER) | payer OTHER, SELFPAY ==
--- NOTE | ~2025-03-31 | US_ITS ---
CLINICAL HISTORY: right sided flank pain US Renal limited right Comparison: None provided Findings: Right kidney normal size and echotexture, 11.1 cm length. Left kidney Was not imaged present examination. No hydronephrosis of right kidney. Normal color Doppler IMPRESSION: 1. Negative right kidney. This document has been electronically signed by: Ricky Avila MD on 03/31/2025 20:33:40
[2025-03-31 19:26] VITALS: BP 180/100; PULSE 76; RESP 20; TEMP 36.6; O2SAT 98; BMI 32.9
--- NOTE | 2025-03-31 19:27 | ED_ITS ---
HPI - General Adult General Chief complaint: Urogenital-Male Stated complaint: Flank pain Time Seen by Provider: 03/31/25 20:16 Source: patient Limitations: no limitations History of Present Illness ED Provider: Sujatha Romano PA-C HPI narrative: 44-year-old male presents with right flank pain x3 days. Pain over mid flank with radiation to right lower quadrant. Pain fluctuates in intensity, becoming severe at times, described as a stabbing sensation. Associated difficulty voiding. Denies dysuria, obvious hematuria, history of kidney stones or fever. Related Data Home Medications ?Medication ?Instructions ?Recorded ?Confirmed loratadine 10 mg tablet 10 mg PO DAILY 05/06/24 Previous Rx's ?Medication ?Instructions ?Recorded azithromycin 250 mg tablet See Rx Instructions PO .COM PLEX #6 05/06/24 tabs codeine 10 mg-guaifenesin 100 mg/5 10 ml PO Q4-6H PRN cold symptoms 05/06/24 mL oral liquid #120 mL prednisone 20 mg tablet 20 mg PO QAM #5 tabs 4 ketorolac 10 mg tablet 10 mg PO Q6H PRN pain #20 ta bs 03/31/25 ondansetron 4 mg disintegrating 4 mg PO Q8H PRN nausea and 03/31/25 tablet vomiting #10 tabs tamsulosin 0.4 mg capsule (Flomax) 0.4 mg PO DAILY #6 caps 03/31/25 Allergies Allergy/AdvReac Type Severity Reaction Status Date / Time No Known Allergies Allergy Verified 03/31/25 19:31 [facility] Past Medical History Attestation statement: The following information was validated with the patient. 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 RME assessment and note performed by: Saloni Coleman PA-C This is a 55-eryp-ghs-male, with no known medical problems, who presents to the ER with concerns of right-sided flank pain radiating to his right lower abdomen for the last few days, worsening today. Patient does have tenderness palpation along the right CVA region. Also reporting difficulty with voiding. Of note, he does have very faint vesicular rash on his right flank, however nontender to light touch. Plan: Labs, UA, further ER evaluation needed. Medications Administered Discontinued Medications Generic Name Dose Route Start Last Admin Trade Name Freq PRN Reason Stop Dose Admin Sodium Chloride 500 mls @ 500 mls/hr 03/31/25 20:25 03/31/25 21:35 Ns IV 03/31/25 21:24 Infused .Q1H ONE Infusion Ketorolac Tromethamine 15 mg 03/31/25 20:25 03/31/25 20:55 Ketorolac Tromethamine 15 Mg/Ml Vial IVPUSH 03/31/25 20:26 15 mg ONCE ONE Administration Morphine Sulfate 4 mg 03/31/25 20:25 03/31/25 20:56 Morphine Sulfate 4 Mg/Ml Cartridge IVPUSH 03/31/25 20:26 4 mg ONCE ONE Administration Protocol Ondansetron HCl 4 mg 03/31/25 20:25 03/31/25 20:55 Ondansetron Hcl 4 Mg/2 Ml Vial IVPUSH 03/31/25 20:26 4 mg ONCE ONE Administration Tamsulosin HCl 0.4 mg 03/31/25 20:25 03/31/25 20:44 Tamsulosin Hcl 0.4 Mg Capsule PO 03/31/25 20:26 0.4 mg ONCE ONE Administration Medical Decision Making Medical Decision Making MDM Narrative: 44-year-old male presents with right flank pain x3 days. Pain over mid flank with radiation to right lower quadrant. Pain fluctuates in intensity, becoming severe at times, described as a stabbing sensation. Associated difficulty voiding. Denies dysuria, obvious hematuria, history of kidney stones or fever. No chronic issues History: Per patient I have considered the following differential diagnoses: Pyelonephritis, UTI, renal colic, appendicitis Plan: Given distribution of pain in nature of symptoms, I am most concerned for renal colic. Screening labs obtained, the patient just gave a urine sample. An ultrasound was obtained as well. Giving morphine Zofran Toradol IV fluid and Flomax. Doubtful to be pyelonephritis, he has no CVA tenderness and he is afebrile. Thought about appendicitis given right-sided symptoms, however there was no focal right lower quadrant pain. I have independently reviewed the following tests: Labs: No leukocytosis, not anemic, no electrolyte abnormality, urine Not infected passing blood Renal ultrasound:Findings: Right kidney normal size and echotexture, 11.1 cm length. Left kidney Was not imaged present examination. No hydronephrosis of right kidney. Normal color Doppler IMPRESSION: 1. Negative right kidney. Differential Diagnosis Differential Diagnoses: The differential diagnosis associated with the presentation includes See medical decision-making Admission/Observation Consideration of admission/observation: Escalation of care including admission/observation considered not applicable Lab Data MDM Lab Attestation statement: I reviewed the patient's lab results. 03/31/25 19:44 03/31/25 19:44 Labs: Lab Results 03/31/25 03/31/25 Range/Units 19:44 20:27 WBC 10.0 (4.8-10.8) X10*3/uL RBC 5.17 (4.60-5.80) X10*6/uL Hgb 14.0 (14.0-18.0) g/dl Hct 43.2 (42.0-52.0) % MCV 83.6 (80.0-98.0) fL MCH 27.1 (27.0-33.0) pg MCHC 32.4 (31.0-36.0) g/dl RDW 13.4 (11.0-16.0) % Plt Count 216 (160-400) X10*3/uL MPV 10.5 (9.4-12.4) fL Immature Gran % (Auto) 0.3 (0.0-0.4) % Neut % (Auto) 39.2 L (45-73) % Lymph % (Auto) 53.0 H (20-40) % Orange % (Auto) 6.8 (2-11) % Eos % (Auto) 0.4 (0-4) % Baso % (Auto) 0.3 (0-2) % Lymph # (Auto) 5.3 H (1.2-4.9) X10*3/uL Orange # (Auto) 0.7 (0.1-1.2) X10*3/uL Eos # (Auto) 0.0 (0.0-0.4) X10*3/uL Baso # (Auto) 0.0 (0.0-0.2) X10*3/uL Abs Immat Gran (auto) 0.03 (0.00-0.03) X10*3/uL Absolute Neuts (auto) 3.9 (2.0-8.3) x10*3/uL Absolute Nucleated RBC 0.000 (0.0-0.012) X10*3/uL Nucleated RBC % (auto) 0.0 (0.0-0.2) /100WBC Smear Tech's Comments VERIFIED Sodium 141 (135-145) mmol/L Potassium 3.8 (3.3-5.1) mmol/L Chloride 104 (96-108) mmol/L Carbon Dioxide 28 (22-29) mmol/L Anion Gap 13 (12-20) BUN 11 (9-16) mg/dL Creatinine 0.86 (0.5-1.4) mg/dL Estim Creat Clear Calc 120.5 Estimated GFR > 60 Random Glucose 100 (60-115) mg/dL Calcium 9.6 (8.4-10.2) mg/dL Magnesium 2.1 (1.6-2.6) mg/dL Total Bilirubin 0.2 (0.0-1.0) mg/dL Direct Bilirubin < 0.2 (0.0-0.5) mg/dL AST 22 (5-37) U/L ALT 27 (0-40) U/L Alkaline Phosphatase 98 (39-117) U/L Total Protein 7.5 (6.5-8.0) g/dL Albumin 4.8 (3.5-5.0) g/dL Urine Color Yellow Urine Appearance Clear Urine pH 7.0 (5.0-9.0) Ur Specific [place] 1.020 (1.005-1.025) Urine Protein Negative (Neg-Trace) mg/dL Urine Glucose (UA) Negative (Negative) mg/dL Urine Ketones Trace (Negative) mg/dL Urine Blood Trace H (Negative) Urine Nitrite Negative (Negative) Ur Leukocyte Esterase Negative (Negative) Urine RBC 6-10 H (0-2) /HPF Urine WBC 0-5 (0-5) /HPF Ur Squamous Epith Cells 0-2 (0-2) /HPF Urine Bacteria None Seen (None Seen) Hyaline Casts 0-2 (0-2) /LPF Radiology Impression Discussion of test interpretation with radiology: I have reviewed the radiologist's reading. Discharge Plan Discharge Clinical Impression: Renal colic on right side Patient Disposition: Home, Self-Care Instructions: Renal Colic (ED) Additional Instructions: you are passing a kidney stone. See home care instructions. The ultrasound of the kidney is normal, your labs were normal, with the exception that you are passing blood in your urine, however the urine is not infected. See home care instructions. Take the Flomax as directed, this medication will help to induce urine flow. Use the ketorolac as needed for pain, take it with food. Uses Zofran as needed for nausea if you develop nausea. I am providing you with a contact for our Urology Service if you develop more kidney stones in the future. Prescriptions: New ketorolac 10 mg tablet 10 mg PO Q6H PRN (Reason: pain) Qty: 20 0RF Rx Instructions: maximum total duration of 5 days from all oral, intranasal, or parenteral formulations. Patient received an IV dose of Toradol here in the emergency room tamsulosin [Flomax] 0.4 mg capsule 0.4 mg PO DAILY Qty: 6 0RF ondansetron 4 mg tablet,disintegrating 4 mg PO Q8H PRN (Reason: nausea and vomiting) Qty: 10 0RF No Action loratadine 10 mg tablet 10 mg PO DAILY azithromycin 250 mg tablet See Rx Instructions PO .COMPLEX Qty: 6 0RF Rx Instructions: For 250 mg dose pack: take 500 mg today (day 1), then 250 mg for 4 days (days 2-5) PO prednisone 20 mg tablet 20 mg PO QAM Qty: 5 0RF codeine-guaifenesin 10-100 mg/5 mL liquid 10 ml PO Q4-6H PRN (Reason: cold symptoms) Qty: 120 0RF Stand Alone Forms: Work/School Release Print Language: Greenlandic
[2025-03-31 19:53] LABS: Hematocrit 43.2 % (42.0-52.0); Hemoglobin 14.0 g/dl (14.0-18.0); Imm Gran Abs Auto 0.03 X10*3/uL (0.00-0.03); Imm Gran Pct Auto 0.3 % (0.0-0.4); Lymphocytes Absolute Auto 5.3 X10*3/uL (1.2-4.9); MANUAL DIFF FLAG SCAN; Mean Corpuscular HGB Conc 32.4 g/dl (31.0-36.0); Mean Corpuscular Hemoglobin 27.1 pg (27.0-33.0); Mean Corpuscular Volume 83.6 fL (80.0-98.0); NRBC Abs Auto 0.000 X10*3/uL (0.0-0.012); NRBC Pct Auto 0.0 /100WBC (0.0-0.2); Platelet Count 216 X10*3/uL (160-400); Red Blood Count 5.17 X10*6/uL (4.60-5.80); SCAN SMEAR FLAG 1; White Blood Count 10.0 X10*3/uL (4.8-10.8)
[2025-03-31 20:03] LABS: Alanine Aminotransferase 27 U/L (0-40); Albumin Level 4.8 g/dL (3.5-5.0); Alkaline Phosphatase 98 U/L (39-117); Anion Gap 13 (12-20); Aspartate Amino Transferase 22 U/L (5-37); Blood Urea Nitrogen 11 mg/dL (9-16); Calcium 9.6 mg/dL (8.4-10.2); Carbon Dioxide 28 mmol/L (22-29); Chloride 104 mmol/L (96-108); Creatinine Clr Calc Pharmacy 120.5; Estimated Glomerular Filt Rate > 60; Magnesium 2.1 mg/dL (1.6-2.6); Potassium 3.8 mmol/L (3.3-5.1); Sodium 141 mmol/L (135-145); Total Protein 7.5 g/dL (6.5-8.0)
[2025-03-31 20:56] VITALS: RESP 16
[2025-03-31 21:13] LABS: Appearance Urine Clear; Glucose Urine UA Negative (Negative); PH 7.0 (5.0-9.0); Specific Gravity - Urine 1.020 (1.005-1.025); UMIC TRIGGER UACC YES
[2025-03-31 22:00] VITALS: BP 131/86; PULSE 58; RESP 17; TEMP 36.7; O2SAT 97
[2025-03-31 22:09] VITALS: BP 131/86; PULSE 58; RESP 17; TEMP 36.7; O2SAT 97
== END 2025-03-31 22:11 | disposition home or self-care (01) ==
PROVIDERS: Physician Assistant Medical; Emergency Provider Emergency Medicine
DX: N23 Unspecified renal colic (principal); R21 Rash and other nonspecific skin eruption; Z72.0 Tobacco use
CPT/HCPCS: 36415; 76775; 80048; 80076; 81001; 83735; 85025; 96361; 96374; 96375; 99284; J1885; J2270; J2405

== ENCOUNTER → 2025-03-31 19:30 | Outpatient (BNV) | payer OTHER, SELFPAY | PROVIDERS: Emergency Provider Emergency Medicine; Visit Provider Radiology Diagnostic Radiology | DX: R10.A1 Flank pain, right side (principal) | CPT/HCPCS: 76775 ==

== ENCOUNTER 2025-06-18 10:32 | Emergency (ER) | payer OTHER, SELFPAY ==
--- NOTE | ~2025-06-18 | XR_ITS ---
CLINICAL HISTORY: pain, no known injury 4 view right knee Comparison: None provided Findings: No fractures or dislocations. Small suprapatellar joint effusion. Mild degenerative medial tibiofemoral compartmental narrowing. No radiopaque foreign body. IMPRESSION: No acute fracture. Small suprapatellar joint effusion. This document has been electronically signed by: Catrina Sung MD on 06/18/2025 12:29:40
[2025-06-18 11:00] VITALS: BP 144/73; PULSE 87; RESP 16; TEMP 36.2; O2SAT 98; BMI 32.5
--- NOTE | 2025-06-18 14:27 | ED_ITS ---
HPI - General Adult General Chief complaint: Extremity Injury, Lower Stated complaint: Right Knee Pain Time Seen by Provider: 06/18/25 14:30 Source: patient Mode of arrival: ambulatory Limitations: no limitations History of Present Illness ED Provider: Clara Haywood PA-C HPI narrative: Patient is a 44 year old male with no reported medical history presenting to the emergency department today with right knee pain. 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 Patient states that he did not specifically do anything to injure the knee. Patient denies any other complaints at this time. Onset (ago): week(s) (1) Relieving factors: none Exacerbating factors: movement Associated symptoms: denies other symptoms Treatments prior to arrival: none Related Data Home Medications ?Medication ?Instructions ?Recorded ?Confirmed loratadine 10 mg tablet 10 mg PO DAILY 05/06/24 Previous Rx's ?Medication ?Instructions ?Recorded azithromycin 250 mg tablet See Rx Instructions PO .COM PLEX #6 05/06/24 tabs codeine 10 mg-guaifenesin 100 mg/5 10 ml PO Q4-6H PRN cold symptoms 05/06/24 mL oral liquid #120 mL prednisone 20 mg tablet 20 mg PO QAM #5 tabs 4 ketorolac 10 mg tablet 10 mg PO Q6H PRN pain #20 ta bs 03/31/25 ondansetron 4 mg disintegrating 4 mg PO Q8H PRN nausea and 03/31/25 tablet vomiting #10 tabs tamsulosin 0.4 mg capsule (Flomax) 0.4 mg PO DAILY #6 caps 03/31/25 Allergies Allergy/AdvReac Type Severity Reaction Status Date / Time No Known Allergies Allergy Verified 06/18/25 11:03 Review of Systems Constitutional: Constitutional: Reports as per HPI Eyes: Eyes: Reports as per HPI ENT: Reports as per HPI Cardiovascular: Cardiovascular: Reports as per HPI Respiratory: Respiratory: Reports as per HPI Gastrointestinal: Gastrointestinal: Reports as per HPI Genitourinary: Genitourinary: Reports as per HPI Musculoskeletal: Musculoskeletal: Reports as per HPI Integumentary/Breasts: Skin/Breast: Reports as per HPI Neurologic: Reports as per HPI Psychiatric: Psychiatric: Reports as per HPI Endocrine: Endocrine: Reports as per HPI Hematologic/Lymphatic: Hematologic/Lymphatic: Reports as per HPI Allergic/Immunologic: Allergic/Immunologic: Reports as per HPI [facility] Past Medical History Attestation statement: The following information was validated with the patient. Source: old records reviewed and nursing notes reviewed Family History Family History Mother High blood pressure Arthritis Father Asthma Lung cancer High blood pressure Social History Social History Housing: Apartment Alcohol intake: never Patient Tobacco Use Status: Current everyday Tobacco user Cigarettes Per Day: 10 e-Cigarette/Vaping Use: Never Used Second Hand Smoke Exposure: No Substance Use Type: Former Substance User Advance Directives: No Advance Directives Information Provided: Yes service: No Current occupational status: unemployed Cognitive needs: No Hearing needs: No Vision needs: No Physical Exam ED Vital Signs: Vital Signs - 24 hr 06/18/25 11:00 06/18/25 14:42 Temperature 97.2 F 97.2 F Pulse Rate 87 87 Respiratory Rate 16 16 Blood Pressure 144/73 H 144/73 H Pulse Oximetry 98 98 Oxygen Delivery Method Room Air Room Air BMI result Body Mass Index 32.5 Const General: cooperative, alert and awake Orientation/consciousness: patient oriented x3 HENMT Head: Yes normal to inspection and Yes atraumatic Ears: hearing grossly normal bilaterally and external ears normal General nose exam: Normal external nose present, no nasal discharge noted and no epistaxis Face and sinus: Yes normal facial exam, No abrasion and No laceration Mouth: Normal oral and palatal mucosa present, no drooling and no muffled voice Eyes General: appearance normal, both eyes and all related structures Periorbital: periorbital findings normal Eyelids: Yes eyelids normal Conjunctivae: conjunctivae normal Pupils: Equal, round and reactive pupils present EOM: EOMs intact bilaterally Resp Effort & Inspection: normal respiratory effort and able to speak in complete sentences Neuro General: patient oriented x3, moves all extremities and CN's II-XI intact bilaterally Cranial nerves: Yes Equal, round and reactive pupils present Cognition (Neuro): normal cognition Extrem General: Yes full ROM Psych Appearance: grossly normal Mental Status: mental status grossly normal Attitude: cooperative Medical Decision Making Medical Decision Making MDM Narrative: Patient is a 44 year old male with no reported medical history presenting to the emergency department today with right knee pain. Patient's physical exam was as noted in the physical exam portion of this note. Patient's right knee x-ray showed no acute bony process. Patient's clinical presentation is most consistent with right knee sprain / strain / overuse. I recommended the patient use an over the counter compression sleeve for his knee to give it added support. I explained my physical exam findings as well as all test results to the patient. I answered all questions asked by the patient. I stressed the importance of the patient taking his medication as directed (either prescribed or as the over the counter packaging recommends). I stressed the importance of the patient following up with his primary care provider and if the pain persists the orthopedic team. I stressed the importance of the patient returning to the emergency department immediately if his symptoms were to worsen or if he were to develop any dizziness, shortness of breath, difficulty breathing, chest pain, blurry vision, loss of vision, nausea, vomiting, abdominal pain, fever, chills, back pain, or any other complaints. Patient verbalized agreement and understanding with this treatment plan and discharge. Differential Diagnosis Differential Diagnoses: The differential diagnosis associated with the presentation includes Knee pain Knee sprain Knee overuse Admission/Observation Consideration of admission/observation: Escalation of care including admission/observation considered Patient would have been admitted to the hospital had his work up had any findings where hospital admission was appropriate and his clinical presentation warranted hospital admission. Independent Interpretation I performed an independent interpretation of an: Plain X-Ray Interpretation: My interpretation is in agreement with the radiologist's impression of this imaging study as written below. CLINICAL HISTORY: pain, no known injury 4 view right knee Comparison: None provided Findings: No fractures or dislocations. Small suprapatellar joint effusion. Mild degenerative medial tibiofemoral compartmental narrowing. No radiopaque foreign body. IMPRESSION: No acute fracture. Small suprapatellar joint effusion. This document has been electronically signed by: Catrina Sung MD on 06/18/2025 12:29:40 Dictated By: Catrina Sung MD Signed By: Electronically signed by Catrina Sung MD 06/18/25 1229 Radiology Impression Discussion of test interpretation with radiology: I have reviewed the radiologist's reading. Discharge Plan Discharge Clinical Impression: Right knee sprain Patient Disposition: Home, Self-Care Instructions: Knee Sprain (DC) Additional Instructions: Your right knee x-ray showed no evidence of a fracture/break. I believe your right knee is sprained. You should utilize an over the counter knee brace to give the knee additional support as well as taking Tylenol + Motrin / Ibuprofen. If this continues to bother you - you should call to establish and follow up with the orthopedic team. IF you are prescribed home medications and/or you are taking over the counter medications at home - it is very important you continue to do so as prescribed / directed unless told otherwise by a healthcare provider. Follow up with your primary care provider. Do your best to stay well hydrated and rest. Return to the emergency department immediately if your symptoms worsen or if you develop any numbness, tingling, dizziness, shortness of breath, difficulty breathing, chest pain, blurry vision, loss of vision, nausea, vomiting, abdominal pain, fever, chills, back pain, or any other complaints. If you do not have a primary care provider - call any of the below numbers to establish and follow up with a primary care provider. [facility] [place]) [phone] [place] [address], [address] [facility] ([facility] [place]) [phone] [place] [address], [address] [facility], [address] [facility] ([facility] [place]) [phone] [place] [address], [address] [facility], [address] [facility] ([place]) [phone] [place] [address], [address] [facility], [address] [facility] [phone] [address] [facility], [address] Please see the information below about our Patient Portal. If you are not yet enrolled in the [facility] Patient Portal, you will receive an enrollment email invitation following your visit to any [facility] care setting. You may also self-enroll in the Patient Portal by visiting our website: [email or web address] The following information is required to access the Patient Portal: - Your [facility] Medical Record Number - Your personal home email address (must match what is in your electronic medical record, Registration staff can assist with this) - Name - Date of Capabilities of the Patient Portal: - Message some providers - View upcoming appointments - Access your health summary, medical history, and visit history - View current conditions and allergies - View procedure and lab results - View your medications, including guidelines, side effects, and precautions - Complete pre-appointment questionnaires requested by your provider - Ready summary reports of your office visits and procedures To access the Patient Portal Mobile [employer], follow these directions: - Search [employer]™ in the Nguyen Store or [employer] Store - Download the Nguyen - Search for [facility] - Enter your login/password Prescriptions: No Action ketorolac 10 mg tablet 10 mg PO Q6H PRN (Reason: pain) Qty: 20 0RF Rx Instructions: maximum total duration of 5 days from all oral, intranasal, or parenteral formulations. Patient received an IV dose of Toradol here in the emergency room tamsulosin [Flomax] 0.4 mg capsule 0.4 mg PO DAILY Qty: 6 0RF ondansetron 4 mg tablet,disintegrating 4 mg PO Q8H PRN (Reason: nausea and vomiting) Qty: 10 0RF loratadine 10 mg tablet 10 mg PO DAILY azithromycin 250 mg tablet See Rx Instructions PO .COMPLEX Qty: 6 0RF Rx Instructions: For 250 mg dose pack: take 500 mg today (day 1), then 250 mg for 4 days (days 2-5) PO prednisone 20 mg tablet 20 mg PO QAM Qty: 5 0RF codeine-guaifenesin 10-100 mg/5 mL liquid 10 ml PO Q4-6H PRN (Reason: cold symptoms) Qty: 120 0RF Referrals: [facility] [Provider Group] Referral Note: If your right knee continues to bother you - call to establish and follow up with the orthopedic team. Interventions: ED Discharge Assessment Last Done: 06/18/25 14:42 Discharge Date/Time: 06/18/25 14:43 Print Language: Yemeni
[2025-06-18 14:42] VITALS: BP 144/73; PULSE 87; RESP 16; TEMP 36.2; O2SAT 98
--- OUTSIDE RECORDS SUMMARY | 2025-06-18 14:43 | XMS_ITS | Encounter Summary ---
Author Organization [employer] Address [address] [place] [address] Care Team Providers Care Flight Follower Name Role Phone Unavailable Primary Care Provider Unavailabl e Encounter Details Date Type Department Care Team (Latest Contact Info) Description 01/23/2020 Abstract [facility] CONVERSIONS Dental, Provider, DDS Social History Tobacco Use Types Packs/Day Years Used Date Smoking Tobacco: Never Assessed Sex and Gender Information Value Date Recorded Sex Assigned at Male 04/21/2022 10:16 AM EDT Legal Sex Male 10:16 AM EDT Gender Identity Male 04/21/2022 10:16 AM EDT Sexual Orientation Straight 04/21/2022 10 :16 AM EDT documented as of this encounter Plan of Treatment Not on file documented as of this encounter Visit Diagnoses Not on filedocumented in this encounter
--- OUTSIDE RECORDS SUMMARY | 2025-06-18 14:43 | XMS_ITS | Clinical Summary ---
Author Organization [employer] Address [address] [place] [address] Care Team Providers Care Population Health Manager Name Role Phone Unavailable Primary Care Provider Unavailabl e Social History Tobacco Use Types Packs/Day Years Used Date Smoking Tobacco: Never Assessed Sex and Gender Information Value Date Recorded Sex Assigned at Male 04/21/2022 10:16 AM EDT Legal Sex Male 10:16 AM EDT Gender Identity Male 04/21/2022 10:16 AM EDT Sexual Orientation Straight 04/21/2022 10 :16 AM EDT Plan of Treatment Health Maintenance Due Date Last Done Comments Depression Screening 1980 Lipid Panel 1980 Disability Screening 1980 Alcohol/Substance Use Screening 1992 Tobacco Screening 1992 Family Planning (PISQ) 1995 HPV Vaccines (1 - Male 3-dos e series) 1995 Hepatitis B Vaccines (1 of 3 - 19+ 3-dose series) 1999 COVID-19 Vaccine ( - 2024-2 6 season) 2025 Influenza Vaccine (#1) 2025 Zoster Vaccines (1 of 2) 2030 DTaP/Tdap/Td Vaccines (2 - T d or Tdap) 09/28/2033 09/29/2023, 10/20/2008 RSV Patients and Patients Aged 60 years or older (1 - 1-dose 75+ series) 2055 HIB Vaccines Aged Out No longer eligi ble based on patient's age to complete this topic Hepatitis A Vaccines Aged Out No long er eligible based on patient's age to complete this topic IPV Vaccines Aged Out No longer eligi ble based on patient's age to complete this topic Meningococcal B Vaccine Aged Out No l onger eligible based on patient's age to complete this topic Meningococcal Vaccine Aged Out No fadi grisel eligible based on patient's age to complete this topic Pneumococcal Vaccine: Pediatrics (0 to 5 Years) and At-Risk Patients (6 to 49) Years Aged Out No longer eligible b ased on patient's age to complete this topic RSV under 20 months Aged Out No longe r eligible based on patient's age to complete this topic Rotavirus Vaccines Aged Out No longer eligible based on patient's age to complete this topic
--- OUTSIDE RECORDS SUMMARY | 2025-06-18 14:43 | XMS_ITS | Clinical Summary ---
Author Organization [facility] Address [address] [place] [address] Care Team Providers Care Range Mounter Name Role Phone Taiwo Medrano MD Primary Care Provider Unavaila ble Surgical History Surgery Date Site/Laterality Comments OTHER SURGICAL HISTORY PROCEDURE: DENIES PREVIOUS SURGERY Family History Medical History Relation Name Comments Other: lung dz Father smoker, etoh abuse, ?lung cancer Arthritis Maternal Grandmother diabete s, htn, strokes, [place], lung dz Hypertension Mother arthritis Relation Name Status Comments Father Maternal Grandmother Mother Social History Tobacco Use Types Packs/Day Years Used Date Smoking Tobacco: Every Day Cigarettes Smokeless Tobacco: Never Alcohol Use Standard Drinks/Week Comments No 0 (1 standard drink = 0.6 oz pur e alcohol) Sex and Gender Information Value Date Recorded Sex Assigned at Not on file Legal Sex Male 4:29 PM EST Gender Identity Not on file Sexual Orientation Not on file Plan of Treatment Health Maintenance Due Date Last Done Comments Hepatitis B Vaccines (1 of 3 - 19+ 3-dose series) 1999 HPV Vaccines (1 - 3-dose SCD M series) 2007 DTaP,Tdap,and Td Vaccines (2 - Td or Tdap) 10/20/2018 10/20/2008 Depression Screening 06/22/2024 COVID-19 Vaccine (1 - 2024-2 6 season) 2025 Influenza Vaccine (#1) 2025 RSV Immunization Adult Patie nts (1 - 1-dose 75+ series) 2055 HIB Vaccines Aged Out No longer eligi ble based on patient's age to complete this topic Hepatitis A Vaccines Aged Out No long er eligible based on patient's age to complete this topic IPV Vaccines Aged Out No longer eligi ble based on patient's age to complete this topic MMR Vaccines Aged Out No longer eligi ble based on patient's age to complete this topic Meningococcal ACWY Vaccine Aged Out N o longer eligible based on patient's age to complete this topic Meningococcal B Vaccine Aged Out No l onger eligible based on patient's age to complete this topic Pneumococcal Vaccine: Pediat rics (0 to 5 Years) and At-Risk Patients (6 to 49 Years) Aged Out No longer eligi ble based on patient's age to complete this topic RSV Immunization Patients Un emelina 20 months Aged Out No longer eligible b ased on patient's age to complete this topic Varicella Vaccines Aged Out No longer eligible based on patient's age to complete this topic Care Teams Range Mounter Relationship Specialty Start Date End Date Taiwo Medrano MD PCP - General Internal Medicine 09/12/15
== END 2025-06-18 14:43 | disposition home or self-care (01) ==
PROVIDERS: Emergency Provider Emergency Medicine
DX: S83.91XA Sprain of unspecified site of right knee, initial encounter (principal); X50.9XXA Other and unspecified overexertion or strenuous movements or postures, initial encounter; Y93.89 Activity, other specified; Y92.89 Other specified places as the place of occurrence of the external cause; Y99.0 Civilian activity done for income or pay
CPT/HCPCS: 73562; 99282; 99283

== ENCOUNTER → 2025-06-18 11:17 | Outpatient (BNV) | payer OTHER, SELFPAY | PROVIDERS: Visit Provider Radiology Diagnostic Radiology | DX: M25.461 Effusion, right knee (principal) | CPT/HCPCS: 73562 ==